=== PATIENT | male | born 1970 | race Two or more races ===

== ENCOUNTER 2025-03-04 12:33 | Emergency (ER) | payer OTHER ==
[~2025-03-04] VITALS: Ht 172.7 cm; Wt 135.2 kg
[~2025-03-04 12:33] MED LIST: ASPI-1169 PO; ATOR10TA PO; FLUO20CA36 PO; GABA-534 PO; METF-442 PO
[2025-03-04] MEDS ORDERED: LIDOCAINE/PRILOCAINE (5GM) 5 GM TUBE TP ONE (14:39)
[2025-03-04] MEDS: LIDOCAINE 5% OINT 35.44 GM TUBE TP ONE (14:47)
[2025-03-04] MEDS ORDERED: CEPH-570 PO (15:49)
[2025-03-04] MEDS ORDERED: SULF1TAB48 PO (15:49)
[2025-03-04 16:46] VITALS: BP 134/83; TEMP 98.5; O2SAT 98
== END 2025-03-04 16:48 | disposition home or self-care (01) ==
LOC: ER 12:33
DX: M70.21 Olecranon bursitis, right elbow (principal); E11.9 Type 2 diabetes mellitus without complications; E78.00 Pure hypercholesterolemia, unspecified; Z79.4 Long term (current) use of insulin; Z79.82 Long term (current) use of aspirin; Z79.84 Long term (current) use of oral hypoglycemic drugs; Z79.899 Other long term (current) drug therapy
CPT/HCPCS: 99285; 20605; 73080; A6403